=== PATIENT | male | born 1950 | race Caucasian/White ===

== ENCOUNTER → 2023-11-17 | Outpatient (CLI) | payer MEDICARE, OTHER ==
[2023-11-17 15:48] LABS: CALCIUM 9.6 mg/dL (8.4-10.2); CREATININE, serum 1.41 mg/dL (0.72-1.25); POTASSIUM 4.4 mEq/L (3.5-4.5)
== END ==
LOC: COL.LAB 14:42
PROVIDERS: Registered Nurse
DX: N18.32 Chronic kidney disease, stage 3b (principal); E87.5 Hyperkalemia